=== PATIENT | male | born 1995 | race Two or more races ===

== ENCOUNTER 2023-12-07 13:14 | Emergency (ER) | payer OTHER ==
[~2023-12-07] VITALS: Ht 162.6 cm; Wt 69.4 kg
[2023-12-07] MEDS ORDERED: MIRTAZAPINE15 M1 (13:29)
[2023-12-07] MEDS ORDERED: DIVALPROEX SOD500 MG (13:30)
[2023-12-07] MEDS ORDERED: 0.9 % SODIUM CHLORIDE 1,000 ML IV STA (15:18)
[2023-12-07] MEDS ORDERED: FAMOtidine 10 MG/ML (4ML VIAL) IV STA (15:19)
[2023-12-07 15:45] LABS: HEMATOCRIT 46.1 % (39.0-48.0); HEMOGLOBIN 16.3 g/dL (13-16.00); MEAN CELL VOLUME 86.4 fL (80.0-100.00); MEAN CORPUSCULAR HEMOGLOBIN 30.5 pg (27.00-32.0); MEAN CORPUSCULAR HGB CONC 35.3 g/dl (32.0-36.0); PLATELET COUNT 240 K/uL (150-450); RED BLOOD COUNT 5.33 M/uL (4.00-6.00)
[2023-12-07] MEDS ORDERED: ONDANSETRON HCL 2 MG/ML VIAL IV ONE (15:45)
[2023-12-07 15:55] LABS: PH,URINE 5.5 (5.0-8.0); URINE APPEARANCE Clear; URINE BILIRRUBIN Negative (NEGATIVE); URINE BLOOD Negative; URINE COLOR Yellow; URINE GLUCOSE Negative (NEGATIVE); URINE LEUKOCYTE Negative; URINE NITRATE Negative; URINE PROTEIN Negative (NEGATIVE); URINE UROBILINOGEN 0.2 E.U./dl
[2023-12-07 15:58] LABS: URINE BACTERIA 12.5 uL (0.0-1933); URINE EPITHELIAL CELLS 5.5 uL (0.0-38.8); URINE WBC 8.8 uL (0.0-23.2)
[2023-12-07 16:02] LABS: URINE RBC 1.2 uL (0.0-20.8)
[2023-12-07 16:08] LABS: CALCIUM 9.7 mg/dL (8.5-10.1); CREATININE SERUM 0.9 mg/dL (0.70-1.30); POTASSIUM 3.84 mEq/L (3.5-5.1)
== END 2023-12-07 18:41 | disposition home or self-care (01) ==
LOC: ER 13:15
PROVIDERS: General Practice
DX: K52.89 Other specified noninfective gastroenteritis and colitis (principal); Z20.822 Contact with and (suspected) exposure to COVID-19